=== PATIENT | male | born 1995 | race Caucasian/White ===

== ENCOUNTER 2018-01-22 19:26 | Emergency (ER) | payer BC ==
--- NOTE | 2018-01-22 19:41 | EDPHY ---
H & P Stated Complaint: abd pain, diarrhea today Time Seen by Provider: 01/22/18 19:31 HPI/ROS: CHIEF COMPLAINT: Abdominal cramping, dizziness HISTORY OF PRESENT ILLNESS: 22-year-old male presents with abdominal cramping and dizziness. Onset of sore throat, subjective fever and fatigue 2 days ago. The symptoms were improving overall. However, just prior to arrival he developed severe abdominal cramping and the need to have a bowel movement. He was traveling in a car and could not find a restroom. He began to feel dizzy and then ultimately had an episode of diarrhea. He did not faint or fall. He now feels much better. The abdominal cramping and dizziness have resolved. REVIEW OF SYSTEMS: complete 10 point ROS reviewed and is negative except for the noted elements in the HPI - Personal History Current Tetanus/Diphtheria Vaccine: Yes Current Tetanus Diphtheria and Acellular Pertussis (TDAP): Yes - Medical/Surgical History Hx Asthma: No Hx Chronic Respiratory Disease: No Hx Diabetes: No Hx Cardiac Disease: No Hx Renal Disease: No Hx Cirrhosis: No Hx Alcoholism: No Hx HIV/AIDS: No Hx Splenectomy or Spleen Trauma: No Other PMH: denies medical or surgical history - Social History Smoking Status: Never smoked Alcohol Use: Sober Drug Use: None - Physical Exam Exam: General Appearance: Alert, pleasant Eyes: Pupils equal and round, no conjunctival pallor or injection ENT, Mouth: Mucous membranes moist Neck: Normal inspection Respiratory: Lungs are clear to auscultation Cardiovascular: Regular rate and rhythm Gastrointestinal: Abdomen is soft and nontender Neurological: A&O, nonfocal exam Skin: Warm and dry, no rash Extremities: Normal inspection Psychiatric: Mood and affect normal Constitutional: Initial Vital Signs Temperature (C) 36.8 C 01/22/18 19:31 Heart Rate 58 L 01/22/18 19:31 Respiratory Rate 16 01/22/18 19:31 Blood Pressure 128/67 H 01/22/18 19:31 O2 Sat (%) 97 01/22/18 19:31 O2 Delivery Mode Room Air Allergies/Adverse Reactions: No Known Allergies Allergy (Unverified 01/22/18 19:34) Medical Decision Making ED Course/Re-evaluation: This patient presents after an episode of abdominal cramping and vasovagal near syncopal episode. Currently feels back to normal and vital signs are stable. IV normal saline 1 L given. Will observe. CBC and electrolytes are normal. Continues to be asymptomatic. Will discharge home. The patient was able to give a stool sample. Sent for GI pathogen panel. The patient will call back for stool study results. Abdomen remained soft and nontender on discharge. - Data Points Laboratory Results: Laboratory Results 01/22/18 19:32 01/22/18 19:32 Microbiology Results: MICROBIOLOGY 01/22/18 20:00 Stool Gastrointestinal Tract Panel (PCR) - Final No Organism Detected Medications Given: Discontinued Medications Sodium Chloride (Ns) 1,000 mls @ 0 mls/hr IV EDNOW ONE; Wide Open PRN Reason: Protocol Stop: 01/22/18 19:50 Last Admin: 01/22/18 20:01 Dose: 1,000 mls Departure - Departure Disposition: Home, Routine, Self-Care Clinical Impression: Near syncope, Abdominal cramping Condition: Good Instructions: Acute Diarrhea (ED), Acute Abdominal Pain (ED), Near Syncope (ED) Additional Instructions: Take Imodium as directed on the packaging if diarrhea persists. Drink plenty of fluids. Call in the morning for stool study results. Referrals: Karen Martinez MD [Medical Doctor] - As per Instructions
[2018-01-22] MEDS ORDERED: NS 1,000 ML IV ONE (19:49)
[2018-01-22 20:08] LABS: PLATELET COUNT 166 10^3/uL (150-400)
[2018-01-22 20:54] VITALS: BP 111/55
== END 2018-01-22 20:59 | disposition home or self-care (01) ==
DX: R55 Syncope and collapse (principal); R10.9 Unspecified abdominal pain